=== PATIENT | male | born 1945 | race Caucasian/White ===

== ENCOUNTER 2025-04-09 21:28 | Emergency (ER) | payer MEDICARE, SELFPAY ==
[2025-04-09] VITALS (19 sets, daily range): BP systolic 122–190; BP diastolic 82–98; PULSE 78–86; RESP 18–28; TEMP 36.6; O2SAT 91–97; BMI 24.3
--- NOTE | 2025-04-09 21:41 | DI.CT.S_ITS ---
PROCEDURE: CT CERVICAL SPINE WO CON INDICATIONS: FALL SYNCOPE TECHNIQUE: Noncontrast 3 mm thick sections acquired from the skull base to the T4 level. Sagittal and coronal reformats were then constructed. For radiation dose reduction, the following was used: automated exposure control, adjustment of mA and/or kV according to patient size. COMPARISON: [facility], CR, XR CHEST 1V, 04/09/2025, 22:05. FINDINGS: Image quality: Excellent. Bones: No fractures or dislocations. Moderate degenerative changes at the cervical spine. Prior right 2nd rib fracture. Right clavicle fracture with 1 shaft with displacement. There is callus formation. Soft tissues: Prevertebral soft tissues are normal in thickness. No paravertebral hematomas. No apical pneumothoraces. Bilateral calcified pleural plaques. IMPRESSION: 1. No acute fracture seen. 2. Chronic fractures; right clavicle with displacement and right 2nd rib. 3. Calcified pleural plaques. Most consistent with prior asbestos exposure. Dictated by: Arnel Tamayo M.D. on 04/09/2025 at 22:42 Approved by: Arnel Tamayo M.D. on 04/09/2025 at 22:47
--- NOTE | 2025-04-09 21:50 | ED_ITS ---
HPI - Trauma General Chief Complaint: Fall Stated Complaint: GLF hit head Time Seen by Provider: 04/09/25 21:40 Source: patient, EMS, RN notes reviewed and old records reviewed Mode of arrival: EMS Limitations: no limitations History of Present Illness HPI narrative: 79-year-old male history of Parkinson's, prior history of intracranial bleed after a fall with a craniotomy and proximally 4 years ago treated in [place], hypertension, diabetes patient denies any anticoagulation. Patient was getting out of a car when he fell. Hit his head on the ground has a loss of consciousness up to 5 minutes according to his friend. 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 Patient denies any neck pain he states he has a mild headache. He does have an abrasion of the back in his head he denies any back pain, no chest pain or shortness of breath. No nausea or vomiting. No loss of bowel or bladder control, no issues with bowel movements or urination he denies any new numbness tingling or weakness in his extremities. He does not recall the event. States he takes medications for Parkinson's, states he has had prior craniotomy for intracranial bleed proximally 4 years ago he does not recall exactly what kind of bleed it was. He denies any allergies to medications states he is up-to-date in his tetanus in the past 5 years. He denies any tobacco, had 1 alcoholic drink this evening, denies any recreational drugs. He is visiting friends in lives in [place], close to [place]. He has a friend at bedside but is . Review of Systems Review of Systems ROS Unobtainable: All systems reviewed & are unremarkable except as noted in HPI and below Patient History Social History Smoking Status: Never smoker Exam Narrative Exam Narrative: GEN: Patient appears in mild distress. Patient is alert and oriented he does not recall the event he knows he is visiting area but did not recall how he traveled to the area. Insert is majority of questions appropriately. HEAD: Patient has a abrasion on posterior scalp, no raccoon/Donahue sign. NECK: Nontender, painless range of motion, trachea midline Negative Nexus criteria, no midline line tenderness, distracting injury, altered mental status, neuro deficit, recent EtOH. EYES: PERRLA, EOMI ENT: External inspection normal, trachea is midline, TM's are normal no hemotypanum, Nares are clear, no septal hematoma, no dental or oral injury, airway is normal and with normal occlusion, No bony tenderness RESP: Chest is nontender and has symmetric movement, no ecchymosis, breath sounds are normal no crackles, wheezes or rales CVS: Heart sounds are normal, no murmur noted, No JVD. ABG/GI: Nontender, soft, normal bowel sounds, no distention, no organomegaly, pelvic rock is negative NEURO: Oriented AOx3, neuro is grossly intact, sensation and motor is normal all 4 extremities moving, cranial nerves II through XII are intact, GCS is 14 PSYCH: Normal mood and affect SKIN: Intact, warm and dry, no crepitus and without decubitus BACK: No CVA tenderness, no vertebral tenderness, no step-off's, no crepitus EXT: Atraumatic, hips are nontender, no pedal edema, normal color and temperature, normal range of motion of extremities with normal tendon exam, 2+ pulses in all four extremities Initial Vital Signs Initial Vital Signs: Vital Signs Temperature 97.8 F 04/09/25 21:29 Pulse Rate 81 04/09/25 21:29 Respiratory Rate 18 04/09/25 21:29 Blood Pressure 190/98 H 04/09/25 21:29 Pulse Oximetry 94 04/09/25 21:29 Oxygen Delivery Method Room Air 04/09/25 21:[address] [place] [address] Head Rule Age <16 years old: No Patient on blood thinners: No Seizure after injury: No Exclusion: Patient NOT Excluded, Proceed to next steps GCS < 15 at 2 hr post trauma: Yes Suspected open or depressed skull fracture: No Any sign of basilar skull fracture (hemotympanum, raccoon eyes, Donahue's sign, CSF che-/rhinorrhea): No Two or more episodes of vomiting: No Age greater or equal to 65 years: Yes Retrograde amnesia to the event greater or equal to 30 min: No Dangerous Mechanism (pedestrian vs. mv, occupant ejected from mv, fall from >3 ft or > 5 stairs): No Recommendation: Consider CT. The [place] Head CT Rule cannot rule out need for Imaging. GCS [place] coma scale eye opening: Spontaneous Sawyer coma scale verbal response: Confused Sawyer coma scale motor response: Obey commands Sawyer coma scale total score: 14 Nexus Score for C-Spine Focal Neurologic deficit present: No Midline spinal tenderness present: No Altered level of conciousness present: No Intoxication present: Yes Distracting Injury Present: No Nexus Criteria for C-spine: 1 Course Orders Ordered: ED Orders 04/09/25 20:35 Complete Blood Count AUTO DIFF Stat Comprehensive Metabolic Panel Stat Lipase Stat Magnesium Stat Troponin I Stat 04/09/25 21:41 CT cervical spine wo con Stat CT head/brain wo con Stat XR chest 1V Stat EKG-12 Lead Stat Vital Signs Vital signs: Vital Signs - 8 hr 04/09/25 21:29 04/09/25 21:31 04/09/25 21:36 Temperature 97.8 F Pulse Rate 81 86 Respiratory Rate 18 Blood Pressure 190/98 H 190/98 H Pulse Oximetry 94 95 Oxygen Delivery Method Room Air 04/09/25 21:36 04/09/25 21:40 04/09/25 21:40 Temperature Pulse Rate 81 80 Respiratory Rate 24 21 Blood Pressure 185/97 H Pulse Oximetry 94 96 Oxygen Delivery Method 04/09/25 22:18 04/09/25 22:19 04/09/25 22:19 Temperature Pulse Rate 80 80 Respiratory Rate 25 H Blood Pressure 174/90 H Pulse Oximetry 96 96 Oxygen Delivery Method 04/09/25 22:20 04/09/25 22:20 04/09/25 22:30 Temperature Pulse Rate 79 79 Respiratory Rate 26 H 25 H Blood Pressure 166/87 H Pulse Oximetry 96 96 Oxygen Delivery Method 04/09/25 22:30 04/09/25 22:31 04/09/25 22:31 Temperature Pulse Rate 78 Respiratory Rate 25 H Blood Pressure 187/82 H 175/88 H Pulse Oximetry 97 Oxygen Delivery Method Room Air MDM - Trauma Lab Data 04/09/25 20:35 04/09/25 20:35 Labs: Lab Results 04/09/25 04/09/25 Range/Units 20:35 21:42 WBC 7.2 (4.5-11.0) X10^3/uL RBC 4.51 (4.5-5.9) X10^6/uL Hgb 13.9 (13.5-17.5) g/dL Hct 41.8 (41-53) % MCV 92.7 (80-100) fL MCH 30.7 (26-34) PG MCHC 33.2 (30-36) % RDW 14.8 (11.6-14.8) % Plt Count 287 (150-400) X10^3/uL Neut % (Auto) 58.4 (50-75) % Lymph % (Auto) 31.0 (25-40) % Pratt % (Auto) 7.2 (3-14) % Eos % (Auto) 2.5 (2-4) % Baso % (Auto) 0.9 (0-2) % Neut # (Auto) 4200 (4274-6924) /uL Lymph # (Auto) 2200 (1507-2240) /uL Pratt # (Auto) 500 (0-900) /uL Eos # (Auto) 200 (0-450) /uL Baso # (Auto) 100 (0-100) /uL Sodium 137 (137-145) mmol/L Potassium 4.0 (3.4-5.1) mmol/L Chloride 106 (98-107) mmol/L Carbon Dioxide 25 (22-32) mmol/L BUN 26 H (9-20) mg/dL Creatinine 1.56 H (0.66-1.25) mg/dL Estimated GFR 45 L (>60) mL/min BUN/Creatinine Ratio 16.7 (6-22) Glucose 224 H (70-99) mg/dL POC Whole Bld Glucose 244 H (70-99) mg/dL Calcium 8.7 (8.4-10.2) mg/dL Magnesium 2.0 (1.6-2.3) mg/dL Total Bilirubin 0.9 (0.2-1.3) mg/dL AST 20 (17-59) IU/L ALT 16 (<50) IU/L Alkaline Phosphatase 78 (38-126) U/L Troponin I < 0.012 (0.01-0.034) ng/mL Total Protein 7.3 (6.3-8.2) g/dL Albumin 4.4 (3.5-5.0) g/dL Globulin 2.9 (1.7-4.1) g/dL Albumin/Globulin Ratio 1.5 (1.0-2.8) Lipase 81 (23-300) U/L Point of Care Testing Glucose POC 244 ECG Data Attestation: I personally reviewed and interpreted this ECG as follows: Interpretation: Sinus rhythm with first-degree AV block right bundle-branch block rate of 80, [place] 212 QRS of 136 QTC of 475. MDM Narrative Medical decision making narrative: Sinus rhythm with first-degree AV block right bundle-branch block rate of 80, [place] 212 QRS of 136 QTC of 475.? Head CT, prelim read was called to myself by Dr. Cook, patient has right temporal lobe intraparenchymal bleed 7 mm with a small subdural that is 9 mm with some viral small foci of hyperdensity concerning for acute bleed. There some effacement of the right cerebral hemisphere cortical sulci. But no midline defect of the they appreciate read as acute on chronic CT cervical no acute fracture chronic fractures right clavicle with a displaced 2nd right rib calcified pleural plaques most consistent with prior asbestos exposure. Chest x-raychronic appearing clavicle fracture calcified pleural plaques difficult to exclude pulmonary nodules Labs shows normal CBC, chemistries show creatinine 1.56 BUN 26 glucose is 224, electrolytes, LFTs and troponin are normal. Patient was activated modified based on history and LOC of proximally 5 minute. Updated patient and his friend at bedside of concern for subdural hematoma he is agreeable to treatment and intervention as needed. Images were pushed to [facility]. Dr. Cox at [facility] accepts for transfer to [facility] Emergency Department. Discussed with the patient he is a full code he states that he would pursue intervention if needed. Patient signed out to Dr. Duarte while awaiting transport. Critical Care Time Critical Care Time Critical Care Time: Yes Total Critical Care Time: 35 Attestation: The high probability of a clinically significant, sudden or life threatening deterioration of the neurologic system(s) required my full and direct attention, intervention and personal management. The aggregate critical care time was [--] minutes. This time is in addition to time spent performing reported procedures but includes the following: [x] Data Review and interpretation [x] Patient assessment and monitoring of vital signs [x] Documentation [x] Medication orders and management Discharge Plan Departure [facility] Impression: Abrasion of scalp, Subdural hematoma, Traumatic intraparenchymal hemorrhage, Fall
[2025-04-09 21:51] LABS: Add Manual Diff / Slide Review NO; Hematocrit 41.8 % (41-53); Hemoglobin 13.9 g/dL (13.5-17.5); Lymphocytes Absolute Auto 2200 /uL (1100-4500); Mean Corpuscular HGB Conc 33.2 % (30-36); Mean Corpuscular Hemoglobin 30.7 PG (26-34); Mean Corpuscular Volume 92.7 fL (80-100); Platelet Count 287 X10^3/uL (150-400)
[2025-04-09 21:53] LABS: Alanine Aminotransferase 16 IU/L (<50); Albumin 4.4 g/dL (3.5-5.0); Albumin Globulin Ratio 1.5 (1.0-2.8); Alkaline Phosphatase 78 U/L (38-126); Blood Urea Nitrogen 26 mg/dL (9-20); Calcium 8.7 mg/dL (8.4-10.2); Carbon Dioxide 25 mmol/L (22-32); Chloride 106 mmol/L (98-107); Estimated Glomerular Filt Rate 45 mL/min (>60); Globulin 2.9 g/dL (1.7-4.1); Glucose 224 mg/dL (70-99); HEMOLYSIS < 15 (0-50); Lipase 81 U/L (23-300); Magnesium 2.0 mg/dL (1.6-2.3); Potassium 4.0 mmol/L (3.4-5.1); Sodium 137 mmol/L (137-145); Total Protein 7.3 g/dL (6.3-8.2)
[2025-04-09 22:05] LABS: Troponin I < 0.012 ng/mL (0.01-0.034)
--- NOTE | 2025-04-09 22:35 | DI.RAD.S_ITS ---
PROCEDURE: XR CHEST 1V INDICATIONS: TRAUMA TECHNIQUE: One view of the chest was acquired. COMPARISON: , CT, CT CERVICAL SPINE WO CON, 04/09/2025, 22:09. FINDINGS: Surgical changes and devices: None. Lungs and pleura: Nodular opacities likely corresponding to calcified pleural plaques as seen on CT cervical spine. No pleural effusions or pneumothorax. Mediastinum: Mediastinal contours appear normal. Heart size is normal. Bones and chest wall: No suspicious bony lesions. Right clavicle fracture. Chronic appearing. Callus formation. Incomplete union with displacement. Overlying soft tissues appear unremarkable. IMPRESSION: Chronic appearing right clavicle fracture. Calcified pleural plaques. Difficult to exclude pulmonary nodules. This could be followed up with CT chest with IV contrast when clinically feasible. Dictated by: Arnel Tamayo M.D. on 04/09/2025 at 22:30 Approved by: Arnel Tamayo M.D. on 04/09/2025 at 22:32
--- NOTE | 2025-04-09 22:45 | DI.CT.S_ITS ---
PROCEDURE: CT HEAD/BRAIN WO CON INDICATIONS: FALL SYNCOPE TECHNIQUE: Noncontrast 4.5 mm thick angled axial sections acquired from the foramen magnum to the vertex, with coronal and sagittal reformats. For radiation dose reduction, the following was used: automated exposure control, adjustment of mA and/or kV according to patient size. COMPARISON: None. FINDINGS: Image quality: Diagnostic. CSF spaces: Basal cisterns are patent. Ventricles are normal in size and shape. Right subdural hematoma measuring 0.9 cm, (4/22). Mixed density with areas of intermediate density, hypodensity, and peripheral hyperdensity. Possible blood products layering along the tentorium. No left extra-axial fluid collection is seen. Brain: No significant midline shift appreciated. Effacement of the right cortical sulci. Focus of hyperdense blood products at the right temporal lobe measuring 0.8 cm, (2/10), intraparenchymal. Zuleta-white matter interface is normal. Skull and face: Calvarium and visualized facial bones are intact, without suspicious lesions. Left bur holes. Sinuses: Visualized sinuses and mastoids are clear. IMPRESSION: 1. Right temporal lobe small focus of acute intraparenchymal hemorrhage. 2. Small right subdural hematoma. Acute on chronic. 3. Effacement of the right cerebral hemisphere cortical sulci. Comment: Findings were discussed with Yaneth Conroy at 10:40 p.m. Dictated by: Arnel Tmaayo M.D. on 04/09/2025 at 22:33 Approved by: Arnel Tamayo M.D. on 04/09/2025 at 22:42
--- NOTE | 2025-04-09 23:25 | PC.NURSE ---
Patient Nahun asks this RN to update his on his health situation and plan. This RN calls his , Sandra at [phone] and provides an update. , Sandra, is driving to [facility] to be with her spouse. Patient made aware.
== END 2025-04-10 00:15 | disposition short-term general hospital (02) ==
PROVIDERS: Emergency Provider Emergency Medicine
DX: S06.5X1A Traumatic subdural hemorrhage with loss of consciousness of 30 minutes or less, initial encounter (principal); S00.01XA Abrasion of scalp, initial encounter; G20.A1 Parkinson's disease without dyskinesia, without mention of fluctuations; I10 Essential (primary) hypertension; W18.30XA Fall on same level, unspecified, initial encounter
CPT/HCPCS: 70450; 71045; 72125; 80053; 82962; 83690; 83735; 84484; 85025; 93010; 99284; 99291; G0390